=== PATIENT | male | born 1985 | race Hispanic/Latino ===

== ENCOUNTER 2024-08-20 17:52 | Emergency (ER) | payer SELFPAY ==
[2024-08-20] MEDS ORDERED: FAMOTIDINE 20 MG/2 ML VIAL IV ONE (18:20)
[2024-08-20] MEDS: SODIUM CHLORIDE 0.9% 1000ML 1,000 ML IV ONE (18:21)
[2024-08-20] MEDS: DICYCLOMINE HCL 20 MG/2 ML VIAL IM ONE (18:21)
[2024-08-20] MEDS: ONDANSETRON HCL INJ 2MG/ML 2ML 2 MG/ML VIAL IV STA (18:21)
[2024-08-20] MEDS: FAMOTIDINE 20 MG/2 ML VIAL IV STA (18:27)
[2024-08-20] MEDS ORDERED: IOPAMIDOL 370 MG/ML 100 ML INFUS..BTL INJ ONE (18:42)
[2024-08-20] MEDS ORDERED: DOXYCYCLINE HY100 MG PO (20:12)
[2024-08-20] MEDS ORDERED: PEPCID20 MG PO (20:13)
[2024-08-20] MEDS ORDERED: METRONIDAZOLE500 MG PO (20:13)
[2024-08-20] MEDS ORDERED: ONDANSETRON ODT4 MG PO (20:14)
[2024-08-20 20:31] VITALS: PULSE 92; RESP 18; TEMP 98.9; O2SAT 98
== END 2024-08-20 20:31 | disposition home or self-care (01) ==
LOC: FSED 17:57
DX: R11.2 Nausea with vomiting, unspecified (principal); K52.9 Noninfective gastroenteritis and colitis, unspecified; K40.20 Bilateral inguinal hernia, without obstruction or gangrene, not specified as recurrent; K42.9 Umbilical hernia without obstruction or gangrene; R10.32 Left lower quadrant pain
CPT/HCPCS: 74177; 80053; 81003; 85025; 99284; J0500; J1308; J2405; J2543; J7030; Q9967